=== PATIENT | female | born 1990 | race Asian ===

== ENCOUNTER 2019-01-28 08:30 | Inpatient (IN) | payer MEDICAID ==
[~2019-01-28 08:30] MED LIST: CEFAZOLIN 2 GM/50 ML (PMX) 50 ML IVPB
[2019-01-28] MEDS ORDERED: LIDOCAINE 100 MG SYRINGE (09:59)
[2019-01-28] MEDS ORDERED: MIDAZOLAM 1 MG/ML 2 ML INJ (09:59)
[2019-01-28] MEDS ORDERED: PROPOFOL 20 ML (09:59)
[2019-01-28] MEDS ORDERED: SUCCINYLCHOLINE CHLORIDE 100 MG/5 ML SYG IV (10:36)
[2019-01-28] MEDS ORDERED: CEFAZOLIN 1 GM INJ (10:36)
[2019-01-28] MEDS ORDERED: ONDANSETRON 4 MG INJ (10:48)
[2019-01-28] MEDS ORDERED: DEXAMETHASONE 4 MG/ML 5 ML INJ (10:48)
[2019-01-28] MEDS ORDERED: GENTAMICIN 80 MG/NS (PMX) 50 ML (10:55)
[2019-01-28] MEDS ORDERED: GENTAMICIN 80 MG/NS (PMX) 50 ML IVPB (11:00)
[2019-01-28] MEDS ORDERED: HYDROmorphONE 1 MG/5 ML IV SYRINGE IV (11:30)
[2019-01-28] MEDS ORDERED: DIPHENHYDRAMINE 50 MG INJ IV (11:30)
[2019-01-28] MEDS ORDERED: MEPERIDINE 25 MG INJ IV (11:30)
[2019-01-28] MEDS ORDERED: EPHEDrine 25 MG/5 ML SYG (11:33)
[2019-01-28] MEDS ORDERED: PHENYLephrine (100 MCG/ML) 10ML SYG (11:33)
[2019-01-28] MEDS: LIDOCAINE 1%/EPI (1:100,000) (MDV) 20 ML ×2 (11:55→12:37)
[2019-01-28] MEDS: BUPIVACAINE 0.25% (MPF) 30 ML INJ ×2 (11:55→12:37)
[2019-01-28] MEDS: GENTAMICIN 80 MG INJ (11:56)
[2019-01-28] MEDS: POLYMYXIN/BACITRACIN 1L IRRIG (11:56)
[2019-01-28] MEDS ORDERED: ACETAMINOPHEN 1000MG/100ML IV 100 ML IVPB (12:30)
[2019-01-28] MEDS ORDERED: KETOROLAC 30 MG INJ (13:02)
[2019-01-28] MEDS: SOD CHLORIDE 0.9% 1,000 ML IV (15:17)
[2019-01-28] MEDS ORDERED: EPHEDrine 25 MG/5 ML SYG IV (15:30)
[2019-01-28] MEDS: HYDROmorphONE 1 MG/5 ML IV SYRINGE IV (15:52)
[2019-01-28] MEDS: ONDANSETRON 4 MG INJ IV ×2 (15:52→19:29)
[2019-01-28] MEDS: D5W-0.45 NACL + KCL 20 MEQ 1,000 ML IV ×2 (16:31→20:25)
[2019-01-28] MEDS: CEFAZOLIN 1 GM/50 ML (PMX) 50 ML IVPB (20:32)
[2019-01-29] MEDS: D5W-0.45 NACL + KCL 20 MEQ 1,000 ML IV ×3 (00:36→20:45)
[2019-01-29] MEDS: CEFAZOLIN 1 GM/50 ML (PMX) 50 ML IVPB ×3 (00:37→12:34)
[2019-01-29] MEDS: morphine 2 MG INJ IV ×3 (00:37→22:07)
[2019-01-29] MEDS: HYDROCODONE/APAP (5/325) TAB PO (03:01)
[2019-01-29] MEDS: ONDANSETRON 4 MG INJ IV (04:33)
[2019-01-29 05:46] LABS: HEMATOCRIT 36.2 % (37.0-47.0); HEMOGLOBIN 11.9 g/dl (12.0-16.0); MEAN CORPUSCULAR HEMOGLOBIN 31.5 pg (29.0-33.0); MEAN CORPUSCULAR HGB CONC 32.9 g/dl (32.0-37.0); MEAN CORPUSCULAR VOLUME 95.8 fl (82.0-101.0); MEAN PLATELET VOLUME 9.5 fl (7.4-10.4); PLATELET COUNT 176 10^3/UL (140-415); RED BLOOD COUNT 3.78 10^6/ul (4.20-5.40); RED CELL DISTRIBUTION WIDTH 11.3 % (11.5-14.5)
[2019-01-29 05:46] LABS: WHITE BLOOD COUNT 7.8 10^3/ul (4.8-10.8)
[2019-01-29 05:48] LABS: ADD MAN DIFF? YES; POSITIVE DIFF @See below
[2019-01-29 06:11] LABS: ANION GAP 6 (5-13); BLOOD UREA NITROGEN 9 mg/dl (7-20); CALCIUM 8.6 mg/dl (8.4-10.2); CARBON DIOXIDE 27 mmol/L (21-31); CHLORIDE 105 mmol/L (97-110); CREATININE 0.56 mg/dl (0.44-1.00); Estimated GFR > 60 mL/min (>60); GLUCOSE 115 mg/dl (70-220); POTASSIUM 4.6 mmol/L (3.5-5.1); SODIUM 138 mmol/L (135-144)
[2019-01-29 09:28] LABS: ANISOCYTOSIS 1+ (0-0); BAND NEUTROPHILS #M 1.6 10^3/ul (0.0-0.6); BAND NEUTROPHILS % (M) 21 % (0-4); BASOPHILS % (M) 1 % (0-2); LYMPHOCYTES % (M) 13 % (15-51); MONOCYTE #M 0.7 10^3/ul (0.3-0.9); MONOCYTES % (M) 10 % (0-11); MYELOCYTES % (M) 1 % (0-0); PLATELET ESTIMATE NORMAL; REACTIVE LYMPHOCYTES #M 0.2 10^3/ul (0.0-0.0); REACTIVE LYMPHOCYTES% (M) 3 % (0-0); SEG NEUT #M 4.2 10^3/ul (1.6-7.5); SEGMENTED NEUTROPHILS (M) % 52 % (39-77); SMUDGE%M 5 % (0-0)
[2019-01-29] MEDS: ACETAMINOPHEN 1000MG/100ML IV 100 ML IVPB ×2 (13:12→18:44)
[2019-01-30] MEDS: ACETAMINOPHEN 1000MG/100ML IV 100 ML IVPB ×2 (01:37→06:58)
[2019-01-30 04:56] LABS: ADD MAN DIFF? NO
[2019-01-30 04:58] LABS: BASOPHILS % 0.3 % (0.0-2.0); EOSINOPHILS % 0.6 % (0.0-7.0); HEMATOCRIT 30.7 % (37.0-47.0); LYMPHOCYTES # 1.2 10^3/ul (0.8-2.9); LYMPHOCYTES % 18.8 % (15.0-51.0); MEAN CORPUSCULAR HEMOGLOBIN 31.4 pg (29.0-33.0); MEAN CORPUSCULAR HGB CONC 32.6 g/dl (32.0-37.0); MEAN CORPUSCULAR VOLUME 96.5 fl (82.0-101.0); MONOCYTE # 0.7 10^3/ul (0.3-0.9); MONOCYTES % 11.1 % (0.0-11.0); NEUTROPHIL # 4.3 10^3/ul (1.6-7.5); PLATELET COUNT 147 10^3/UL (140-415); RED BLOOD COUNT 3.18 10^6/ul (4.20-5.40); RED CELL DISTRIBUTION WIDTH 11.3 % (11.5-14.5)
[2019-01-30 04:58] LABS: WHITE BLOOD COUNT 6.3 10^3/ul (4.8-10.8)
[2019-01-30 05:20] LABS: ANION GAP 5 (5-13); BLOOD UREA NITROGEN 7 mg/dl (7-20); CALCIUM 8.6 mg/dl (8.4-10.2); CARBON DIOXIDE 28 mmol/L (21-31); CHLORIDE 106 mmol/L (97-110); CREATININE 0.49 mg/dl (0.44-1.00); Estimated GFR > 60 mL/min (>60); GLUCOSE 130 mg/dl (70-220); POTASSIUM 4.2 mmol/L (3.5-5.1); SODIUM 139 mmol/L (135-144)
[2019-01-30] MEDS: D5W-0.45 NACL + KCL 20 MEQ 1,000 ML IV ×3 (05:51→18:17)
[2019-01-30] MEDS: HYDROCODONE/APAP (5/325) TAB PO (09:38)
[2019-01-30] MEDS: morphine 2 MG INJ IV (15:33)
[2019-01-30] MEDS: CEFADROXIL 500MG CAPSULE PO (16:03)
[2019-01-31] MEDS: HYDROCODONE/APAP (5/325) TAB PO (00:50)
[2019-01-31] MEDS: CEFADROXIL 500MG CAPSULE PO ×2 (03:06→13:35)
[2019-01-31] MEDS: D5W-0.45 NACL + KCL 20 MEQ 1,000 ML IV ×2 (04:25→12:03)
[2019-01-31 04:53] LABS: ADD MAN DIFF? NO
[2019-01-31 04:57] LABS: BASOPHILS % 0.3 % (0.0-2.0); EOSINOPHILS # 0.1 10^3/ul (0.0-0.5); EOSINOPHILS % 0.7 % (0.0-7.0); HEMOGLOBIN 9.8 g/dl (12.0-16.0); LYMPHOCYTES # 1.6 10^3/ul (0.8-2.9); LYMPHOCYTES % 23.6 % (15.0-51.0); MEAN CORPUSCULAR HEMOGLOBIN 31.5 pg (29.0-33.0); MEAN CORPUSCULAR HGB CONC 32.7 g/dl (32.0-37.0); MEAN CORPUSCULAR VOLUME 96.5 fl (82.0-101.0); MEAN PLATELET VOLUME 9.2 fl (7.4-10.4); MONOCYTE # 0.7 10^3/ul (0.3-0.9); MONOCYTES % 9.9 % (0.0-11.0); NEUTROPHIL # 4.4 10^3/ul (1.6-7.5); NEUTROPHILS % 65.2 % (39.0-77.0); PLATELET COUNT 150 10^3/UL (140-415); RED BLOOD COUNT 3.11 10^6/ul (4.20-5.40); RED CELL DISTRIBUTION WIDTH 11.1 % (11.5-14.5)
[2019-01-31 04:57] LABS: WHITE BLOOD COUNT 6.7 10^3/ul (4.8-10.8)
== END 2019-01-31 14:14 | disposition home or self-care (01) | DRG 583 ==
LOC: REC 08:30 → MS1 01-29 20:32
PROC: 0HTV0ZZ Resection of Bilateral Breast, Open Approach (ICD-10-PCS; principal; 2019-01-28 10:00)
PROC: 0HHV0NZ Insertion of Tissue Expander into Bilateral Breast, Open Approach (ICD-10-PCS; 2019-01-28 10:00)
DX: C50.911 Malignant neoplasm of unspecified site of right female breast (principal)
CPT/HCPCS: 80048; 84703; 85025; 88307; 97161